=== PATIENT | female | born 2000 | race Caucasian/White ===

== ENCOUNTER 2024-01-07 14:01 | Emergency (ER) | payer BC ==
[~2024-01-07] VITALS: Ht 157.5 cm; Wt 46.3 kg
[2024-01-07 15:07] LABS: PREGNANCY TEST URINE QUAL NEGATIVE (NEGATIVE)
[2024-01-07 15:07] LABS: BASOPHILS % (AUTO) 0.5 % (0.0-2.0); EOSINOPHILS % (AUTO) 0.6 % (0.0-6.0); HEMATOCRIT 44 % (33-45); HEMOGLOBIN 15.4 g/dL (11.5-14.8); LYMPHOCYTES # (AUTO) 1.6 K/uL (0.8-4.8); LYMPHOCYTES % (AUTO) 27.5 % (20.0-44.0); MEAN CORPUSCULAR HEMOGLOBIN 32 PG (26.0-33.0); MEAN CORPUSCULAR HGB CONC 35 g/dl (31.0-36.0); MEAN CORPUSCULAR VOLUME 91 fL (82-100); MONOCYTES # (AUTO) 0.5 K/uL (0.1-1.30); MONOCYTES % (AUTO) 7.7 % (2.0-12.0); NEUTROPHILS # (AUTO) 3.8 K/uL (1.8-8.9); NEUTROPHILS % (AUTO) 63.7 % (43.0-81.0); PLATELET COUNT (AUTO) 265 K/uL (150-450); RED BLOOD CELL COUNT(AUTO) 4.87 MIL/uL (4.0-5.2); RED CELL DISTRIBUTION WIDTH 12.1 % (11.5-15.0); WHITE BLOOD COUNT (AUTO) 5.9 K/uL (4.3-11.0)
[2024-01-07 15:33] LABS: CALCIUM, SERUM 9.9 mg/dL (8.5-10.1); CHLORIDE 101 mmol/L (98-107); GLUCOSE 79 mg/dL (74-106); NT-PRO BNP 21 pg/mL (0-125); SODIUM SERUM 139 mmol/L (136-145); UREA NITROGEN, BLOOD 12 mg/dL (7-18)
[2024-01-07 15:37] LABS: CARBON DIOXIDE 25 mmol/L (21-32)
[2024-01-07] MEDS ORDERED: ONDA4TAB5 PO (16:09)
[2024-01-07] MEDS ORDERED: ONDANSETRON 4 MG TAB.RAPDIS ONE (16:15)
[2024-01-07] MEDS: ONDANSETRON 4 MG TAB.RAPDIS SL ONE (16:22)
[2024-01-07 16:43] VITALS: BP 108/72; TEMP 98; O2SAT 100
== END 2024-01-07 16:43 | disposition home or self-care (01) ==
LOC: ER 14:08
DX: R07.9 Chest pain, unspecified (principal); F41.9 Anxiety disorder, unspecified; F32.A Depression, unspecified; F17.200 Nicotine dependence, unspecified, uncomplicated; Z91.010 Allergy to peanuts; Z91.018 Allergy to other foods
CPT/HCPCS: 99285; 71045; 93005; 85025; 80048; 85378; 84703; 36415; 84484; 83880; Q0162

== ENCOUNTER 2024-01-17 01:09 | Emergency (ER) | payer BC ==
[~2024-01-17] VITALS: Ht 157.5 cm; Wt 46.3 kg
[~2024-01-17 01:09] MED LIST: ONDA4TAB5 PO
[2024-01-17 01:21] VITALS: TEMP 98.2
[2024-01-17] MEDS ORDERED: IBUPROFEN 600 MG TABLET ONE (01:27)
[2024-01-17] MEDS: IBUPROFEN 600 MG TABLET PO ONE (01:29)
[2024-01-17 02:53] VITALS: BP 112/84; O2SAT 99
== END 2024-01-17 03:01 | disposition home or self-care (01) ==
LOC: ER 01:09
DX: R06.02 Shortness of breath (principal); F32.A Depression, unspecified; F17.210 Nicotine dependence, cigarettes, uncomplicated; Z79.899 Other long term (current) drug therapy; Z91.010 Allergy to peanuts
CPT/HCPCS: 71045-TC